=== PATIENT | male | born 1970 | race Caucasian/White ===

== ENCOUNTER 2021-12-19 22:44 | Inpatient (IN) | payer OTHER, SELFPAY ==
[2021-12-19 22:53] VITALS: BMI 35.6
--- NOTE | 2021-12-19 23:18 | PC.NURSE ---
MD Hernandez at bedside at this time.
--- NOTE | 2021-12-19 23:40 | ECG_ITS ---
APPROVED REPORT Exam: Resting ECG HR:80 bpm ECG Measurements Heart Rate 80 AXES NY 185 P 43 QRSd 105 QRS -85 QT 377 T 102 QTc 412 Conclusion SINUS RHYTHM PATTERN CONSISTENT WITH PULMONARY DISEASE LEFT ANTERIOR FASCICULAR BLOCK [QRS AXIS <= -45, QR IN I, RS IN II] ABNORMAL QRS-T ANGLE [QRS-T AXIS DIFFERENCE > 60] ABNORMAL ECG UNCONFIRMED REPORT Electronically signed by : Dillon Thornton MD 12/21/2021 19:33:40
[2021-12-19 23:53] LABS: Basophils # 0.2 K/mm3 (0-0.2); Basophils % 0.9 % (0.1-2.0); Eosinophils # 0.1 K/mm3 (0.0-0.4); Eosinophils % 0.3 % (0.1-12.0); Hematocrit 45.5 % (42.0-52.0); Hemoglobin 14.8 g/dL (14.1-18.0); Lymphocytes # 1.8 K/mm3 (0.7-4.5); Lymphocytes % 11.2 % (10-50); Mean Corpuscular HGB Conc 32.5 g/dL (31.8-35.4); Mean Corpuscular Hemoglobin 31.9 pg (27.0-31.2); Mean Corpuscular Volume 98.2 fl (80-94); Mean Platelet Volume 7.4 fl (7.4-10.4); Monocytes # 0.6 K/mm3 (0.1-1.0); Monocytes % 3.5 % (1.7-9.3); Neutrophils # 13.8 K/mm3 (1.8-7.8); Neutrophils % 84.1 % (37.0-80.0); Platelet Count 349 K/mm3 (142-424); Red Blood Count 4.64 M/mm3 (4.60-6.20); Red Cell Distribution Width 14.9 % (11.5-17.5); White Blood Count 16.4 K/mm3 (4.8-10.8)
[2021-12-20] VITALS (26 sets, daily range): BP systolic 106–170; BP diastolic 20–101; PULSE 84–102; RESP 15–20; TEMP 37.1–38.1; O2SAT 89–96; BMI 35.6
--- NOTE | 2021-12-20 | IR_ITS ---
APPROVED REPORT Patient Location: [facility] [employer] Cloth Spreader: CHANDNI Hampton RT (R) PROCEDURES Left heart catheterization Left ventriculogram Selective coronary angiogram Mechanical thrombectomy followed by drug-eluting stent deployment to a proximally thrombosed circumflex artery INDICATION Acute non-ST elevation myocardial infarction, Coronary artery disease Informed consent was obtained prior to the procedure. COMPLICATIONS None TECHNIQUE 1% lidocaine used anesthetize right groin the right femoral artery was accessed via the Salinger technique and a 4 Afghan sheath was initially placed in the right femoral artery. Following this the sheath was upsized immediately to a 6 Afghan hydrophilic sheath. JL4 guide catheter with sideholes was used to intubate the left main artery and perform angiography. At this point 9000 units of heparin was administered intravenously giving a therapeutic ACT. A Choice PT extra-support wire was placed through the occlusion and a 2 mm x 12 mm balloon was deployed at 20 david to predilate the stenosis. There was no jewish of flow after the balloon inflation. Following this a penumbra mechanical aspiration catheter was advanced and the thrombus was aspirated. Scant flow was then identified distally. A 3 mm balloon was then placed into the occlusion and deployed at 20 david with again only scant flow distally. A 3 mm x 18 mm resolute Titus stent was then deployed at 20 david reducing the occlusion and restoring WHIT-3 flow. 3.5 mm x 8 mm balloon was then deployed at 24 david up and down the stent the post dilate. After achieving excellent angiograph results the apparatus was removed and a JR4 catheter was used to perform right coronary angiography as well as left heart catheterization and left ventriculogram. At the end of the procedure the apparatus was removed the groin was reprepped closure change sheath was removed good hemostasis was achieved using Perclose device patient was transferred to the postop holding area stable condition ANGIOGRAPHIC RESULTS The left main artery Normal The left anterior descending artery Has proximal 20 to 30% stenoses with mid vessel 20 and 30% stenoses. The circumflex artery Is a nondominant vessel and initially proximally thrombosed. Following revascularization the circumflex artery was a nondominant large caliber vessel. The first obtuse marginal artery has an ostial proximal 80% concentric stenosis followed by an additional 80% stenosis. The second obtuse marginal artery has proximal concentric 80% stenosis along a tortuous bend. Both obtuse marginal arteries are moderate to large vessel supplying a large amount of myocardium The right coronary artery Is a codominant vessel and has a mid vessel concentric 60% stenosis followed by distal 40% stenoses. The posterior descending artery is a smaller 2 mm vessel and has an ostial 80 to 90% stenosis of the posterior lateral branch is also small approximately 2 mm in diameter and has an 80% concentric stenosis The LEE ventriculogram reveals Severely dilated and globally hypokinetic with an estimated ejection fraction of 15 to 20% The left ventricular end-diastolic pressure 20 mmHg IMPRESSION Coronary artery disease as described above Successful mechanical thrombectomy followed by drug-eluting stenting of a proximal codominant circumflex artery reducing the 100% occlusion to 0% Persistent disease in the first and second obtuse marginal artery as described above Persistent disease in the posterior descending artery and posterior lateral branch as described above Severe left ventricular dysfunction Elevated LVEDP 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
--- NOTE | 2021-12-20 | HMH.ACPN2 ---
Internal Medicine - PN: Subj *Date: 12/20/21 *Time: 00:45 Interval history: 51 yo [place] male accepted in transfer from [facility] this evening with NSTEMI. States he was at work this AM and began having substernal chest pain around 10AM. He presented to the ER around 3 PM. He was found to have elevated troponins with no EKG changes. [facility] was unable to find accepting hospital in [place] and requested transfer here for Cardiology services. On arrival, he is still having chest pain but denies SOA or nausea. He recieved ASA in the ER and has a heparin drip running. He was hypertensive at 158/91. Exam I & O for Last 24 hours: Intake & Output 12/17/21 12/18/21 12/19/21 12/20/21 11:59 11:59 11:59 11:59 Weight 214 lb 9 oz Narrative: He is somewhat stoic and initially rated his pain at 8/10, now 6/10. Neck is supple with no bruits. Lungs clear. Heart is regular with no murmurs. Abdomen soft, NT, no masses. Estremities with no edema Assessment and Plan (1) NSTEMI (non-ST elevated myocardial infarction) Status: Acute Category: Medical Code(s): I21.4 - Non-ST elevation (NSTEMI) myocardial infarction (2) HBP (high blood pressure) Status: Acute Category: Medical Code(s): I10 - Essential (primary) hypertension (3) Elevated LFTs Status: Acute Category: Medical Code(s): R79.89 - Other specified abnormal findings of blood chemistry - Assessment and plan all Dx Assessment and Plan for all problems:: He has recieved mophine and metoprolol 5 mg IV. BP imporved to 142/86. I discussed the case with Dr. Petit and recommends starting NTG drip and give additional morphine. If pain is not controlled, he will likely take patient to laboratory sampler tonight.
[2021-12-20 00:01] LABS: Alanine Aminotransferase 108 U/L (12-78); Albumin Level 4.2 g/dl (3.5-5.0); Albumin/Globulin Ratio 1.4 (1.1-1.8); Alkaline Phosphatase 92 U/L (38-126); Anion Gap 12.1 mEq/L (5-15); Aspartate Amino Transferase 727 U/L (17-59); Bilirubin,Total 0.5 mg/dl (0.2-1.3); Blood Urea Nitrogen 10 mg/dl (9-20); Carbon Dioxide 24 mmol/L (22.0-30.0); Chloride 104 mmol/L (98-107); Creatinine Clearance Estimated 168 mL/min (50-200); Estimated Glomerular Filt Rate 118 ml/min (>60); GFR (African American) 143 ML/MIN (>60); Globulin 2.9 g/dL (1.3-3.2); Glucose 155 mg/dl (74-100); Potassium 4.1 mmoL/L (3.5-5.1); Sodium 136 mmol/L (136-145); Total Protein,Serum 7.1 g/dl (6.3-8.2)
[2021-12-20 00:03] LABS: MANUAL DIFFERENTIAL MANUAL DIFFERENTIAL (MANUAL DIFF)
[2021-12-20 00:05] LABS: PTT Heparin (inpatient only) 31.6 Seconds (23.6-34.0)
[2021-12-20 01:07] LABS: CKMB Relative Index 8.9 U/L (0-4.0); Creatine Kinase 5703 U/L (55-170)
--- NOTE | 2021-12-20 01:34 | PC.NURSE ---
Nightwatch consulted over PTT. Change Heparin gtt to 1600 units. Also asked if Heparin and Nitro gtt are compatible. Pharmacy stated yes they are.
--- NOTE | 2021-12-20 01:38 | PC.NURSE ---
Nitro gtt started at 0129 at 10 mcg/min. Currently infusing @ 30 mcg/min. BP is currently 133/97. Pt rates pain a 5 now from a previous 10.
--- NOTE | 2021-12-20 01:59 | PC.NURSE ---
Nitro titrated to 50 mcg/min. Pt pain at 5. BP 134/96. HR 95. O2 sat 95% on 2L O2 NC.
[2021-12-20 02:09] LABS: Lymphocytes % 16 % (10-50); Macrocytosis 1+; Monocytes % 1 % (2-9); Neutrophils % 83 % (42-76); Platelet Estimate Normal; Stomatocytes 1+; Total Cells Counted 100
[2021-12-20 02:33] LABS: Coronavirus 19, PCR Not Detected (NotDetected); Influenza A, PCR Not Detected (NotDetected); Influenza B, PCR Not Detected (NotDetected)
--- NOTE | 2021-12-20 02:53 | PC.NURSE ---
Damaso called and was updated on pt status. Continues to have pain rating it a 5. Pt describes a weight on his chest that radiates up to throat and down to sternum and below to epigastric area on (L) and (R). MD Petit stated to call in microbiology lab analyst for Stemi alert. 252 dairy and food laboratory assistant notified. 0255 Morphine 2mg IV administered. Attempted to notifiy family. Left message for them to call hospital. Pt prepped and left floor to microbiology lab analyst at [phone].
[2021-12-20 05:01] LABS: CATHL Activated Clotting Time 293 SEC (74-125)
--- NOTE | 2021-12-20 05:09 | PC.NURSE ---
patient up from laboratory technician via stretcher @ this time .
--- NOTE | 2021-12-20 05:43 | PC.NURSE ---
Pt arrived from cardiac cath lab technologist. Currently states he has no pain. Femoral cath site c/d/i. (R) radial cath site is also c/d/i. No hemaotma noted to either site. Nitro gtt infusing at this time @ 10 mcg/min to maintain BP. Heparin gtt was stopped in cardiac cath lab technologist. Pt has had a 15 beat run of VTach. Will place on chart.
[2021-12-20 06:41] LABS: Chloride 101 mmol/L (98-107); Potassium 4.8 mmoL/L (3.5-5.1); Sodium 131 mmol/L (136-145)
[2021-12-20 06:43] LABS: Blood Urea Nitrogen 9 mg/dl (9-20); Creatinine Clearance Estimated 147 mL/min (50-200); Estimated Glomerular Filt Rate 101 ml/min (>60); GFR (African American) 122 ML/MIN (>60)
[2021-12-20 06:44] LABS: Alanine Aminotransferase 122 U/L (12-78); Albumin Level 3.9 g/dl (3.5-5.0); Albumin/Globulin Ratio 1.3 (1.1-1.8); Alkaline Phosphatase 94 U/L (38-126); Anion Gap 5.8 mEq/L (5-15); Bilirubin,Total 0.6 mg/dl (0.2-1.3); Carbon Dioxide 29 mmol/L (22.0-30.0); Cholesterol 225 mg/dl (140-200); Globulin 2.9 g/dL (1.3-3.2); Glucose 142 mg/dl (74-100); Total Protein,Serum 6.8 g/dl (6.3-8.2); Triglycerides 100 mg/dl (30-150); VLDL Cholesterol 20 mg/dL (0-40)
[2021-12-20 06:45] LABS: Calcium 8.6 mg/dl (8.4-10.2); HDL Cholesterol 45 mg/dl (40-60)
[2021-12-20 06:55] LABS: Direct LDL Cholesterol 150.17 mg/dL (100-129)
[2021-12-20 07:00] LABS: Basophils # 0.1 K/mm3 (0-0.2); Basophils % 0.5 % (0.1-2.0); Eosinophils % 0.1 % (0.1-12.0); Hematocrit 45.4 % (42.0-52.0); Hemoglobin 14.3 g/dL (14.1-18.0); Lymphocytes # 2.3 K/mm3 (0.7-4.5); Lymphocytes % 14.4 % (10-50); Mean Corpuscular HGB Conc 31.4 g/dL (31.8-35.4); Mean Corpuscular Hemoglobin 31.7 pg (27.0-31.2); Mean Corpuscular Volume 100.8 fl (80-94); Mean Platelet Volume 8.7 fl (7.4-10.4); Monocytes % 6.1 % (1.7-9.3); Neutrophils # 12.7 K/mm3 (1.8-7.8); Platelet Count 367 K/mm3 (142-424); Red Blood Count 4.51 M/mm3 (4.60-6.20); Red Cell Distribution Width 14.9 % (11.5-17.5); White Blood Count 16.1 K/mm3 (4.8-10.8)
--- NOTE | 2021-12-20 07:33 | HMH.CNCARD ---
History of Present Illness Consult date: 12/20/21 Requesting physician: Ethan Hernandez Consult reason: chest pain Chief complaint: NSTEMI History of present illness: 51-year-old male presented to the emergency room with midsternal chest pain. Patient was noted as non-STEMI. Patient did undergo left heart catheterization immediately which revealed successful mechanical thrombectomy followed by drug-eluting stenting of the proximal circumflex artery, persistent disease in the first and second obtuse marginal artery. Persistent disease of the posterior descending artery and posterolateral branch. Patient was started on Brilinta 90 mg p.o. twice daily along with 81 mg aspirin. Severe left ventricular dysfunction with elevated LVEDP. 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 Patient does speak very little Faroese. Patient states he has been having chest pain all day yesterday prior to coming to the emergency room. Patient states he was short of breath with his chest pain. Patient denies palpitations or dizziness. No swelling noted of the lower extremities. Patient denies chest pain, tightness or pressure at this time. Patient denies shortness of breath. Patient noted to be hypertensive with a blood pressure of 125/94. Patient does continue to be on a nitroglycerin drip, in which the nursing staff is trying to wean patient down. Patient denies any history of coronary disease. Patient unable to tell me if there is significant family history of coronary disease in the family. Patient does smoke at least 2 to 3 cigarettes a day. Patient states he does drink occasional alcohol. Patient states he does have weekly drug testing. Patient states he has not had any recreational drugs for 3 years. Patient was started on Entresto and carvedilol due to the severe left ventricular dysfunction. Patient will need to be started on low-dose diuretic such as a loop diuretic and Aldactone due to elevated LVEDP. Will defer starting loop diuretic and Aldactone until patient becomes hemodynamically stable. Due to the severe left ventricular dysfunction, echocardiogram will be obtained. Echocardiogram results pending. If echocardiogram reveals EF less than 35%, patient will then be fitted for LifeVest due to increased risk for sudden . Discussion of LifeVest and benefits was discussed with patient. Patient verbalized understanding and is agreeable if he would have to have a LifeVest. stripper cutter machine reveals sinus rhythm with a heart rate of 78bpm. Liver enzymes were noted as elevated. We will stop atorvastatin at this time. Total bilirubin is within normal. ANGIOGRAPHIC RESULTS The left main artery Normal The left anterior descending artery Has proximal 20 to 30% stenoses with mid vessel 20 and 30% stenoses. The circumflex artery Is a nondominant vessel and initially proximally thrombosed. Following revascularization the circumflex artery was a nondominant large caliber vessel. The first obtuse marginal artery has an ostial proximal 80% concentric stenosis followed by an additional 80% stenosis. The second obtuse marginal artery has proximal concentric 80% stenosis along a tortuous bend. Both obtuse marginal arteries are moderate to large vessel supplying a large amount of myocardium The right coronary artery Is a codominant vessel and has a mid vessel concentric 60% stenosis followed by distal 40% stenoses. The posterior descending artery is a smaller 2 mm vessel and has an ostial 80 to 90% stenosis of the posterior lateral branch is also small approximately 2 mm in diameter and has an 80% concentric stenosis The LEE ventriculogram reveals Severely dilated and globally hypokinetic with an estimated ejection fraction of 15 to 20% The left ventricular end-diastolic pressure 20 mmHg IMPRESSION Coronary artery disease as described above Successful mechanical throm
--- NOTE | 2021-12-20 07:37 | CA_ITS ---
APPROVED REPORT EXAM: Comprehensive 2D, Doppler, and color-flow Echocardiogram Immigration Paralegal: ROMARIO Aguirre, RVS Ht: 5 ft 5 in Wt: 214lbs BSA: 2.04 BP: 000/00 mmHg Indications: Patient post cath scanned with pt flat/supine, NSTEMI, HTN, Smoker. Evaluate for lifevest 2D Dimensions Left Atrium 4.39 cm LA Volume 44.10 mL LVOT 2.24 cm (M/F) 1.5-2.5 LA Volume Index 21.60 mL/m2 (M/F) 16-34 M-Mode Dimensions RVDd 1.45 cm (0.9-2.6) LA Diam 4.18 cm (1.9-4.0) LVDd 4.90 cm (3.5-5.7) Ao Diam 3.37 cm (2.0-3.7) LVDs 4.19 cm (3.5-5.7) IVSd 1.33 cm (0.6-1.1) PWd 1.17 cm (0.6-1.1) EF (Teich) 35.50% EPSs 0.57 cm FS 14.10% EDV (Teich) 135.90 mL TAPSE 2.20 (<1.7) ESV (Teich) 78.10 mL LV Diastology E Decel Time 67.00 (160-240 msec) E/A Ratio 1.11 MED E' 7.20 (< 7 cm/sec) MED A' 7.70 cm/s E'/MED E' Ratio 11.93 (>14) LAT E' 5.80 (<10 cm/sec) LAT A' 9.80 cm/s E/LAT E' Ratio 14.81 (>14) Aortic Valve LVOT Max 90.00 (70-110 cm/s) LVOT VTI 16.47 cm AoV Peak Alphonse. 136.00 (50-130 cm/s) AO Peak GR. 7.40 mmHg AO Mean GR. 3.70 (<5 mmHg) AO VTI 22.88 (18-25 cm) QUINCY (VTI) 2.84 (2.5-4.5 cm2) Mitral Valve MV A Velocity 78.00 (40-130 cm/s) E/A Ratio 1.11 MV Decel. Time 67.00 (160-240 ms) MV Mean Gr. 1.50 (<2mmHg) Pulmonary Valve PV Peak Velocity 82.00 (50-150 cm/s) Tricuspid Valve TR P. Velocity 217.00 cm/s RAP Estimate 10.00 mmHg RVSP 28.80 mmHg Left Ventricle Left atrium is mildly enlarged, left ventricle is normal size, mild concentric left ventricular hypertrophy, reduced left ventricular systolic function, visually estimated ejection fraction approximately 30%, there is marked hypokinesis involving the inferior inferior basal posterolateral and lateral wall. Grade 1 diastolic dysfunction seen with tissue Doppler evidence of raise left atrial pressure. Right Ventricle Right atrium and right ventricle are normal size and contractility. Aortic Valve Aortic valve is thickened and calcified without aortic stenosis or aortic insufficiency. Mitral Valve Mitral valve is grossly normal, there is trace mitral regurgitation. Tricuspid Valve Tricuspid grossly normal, there is trace tricuspid regurgitation, tricuspid regurgitation jet velocity is inadequate for calculation of the right ventricular systolic pressure. Pulmonic Valve Pulmonic valve is poorly visualized. Great Vessels Aortic root is normal size. Pericardium No significant pericardial effusion noted. Inferior vena cava is mildly dilated without significant inspiratory collapse. Conclusion 1. Mildly dilated, normal left ventricular size, mild concentric left ventricular hypertrophy, visually estimated ejection fraction 30% with multiple segmental wall motion abnormality described above, grade 1 diastolic dysfunction seen with tissue Doppler evidence of raise left atrial pressure. 2. Mild mitral and tricuspid regurgitation. 3. No significant pericardial effusion. 4. Inferior vena cava is mildly dilated without significant inspiratory collapse. Electronically signed by : Ji Hoffman MD 12/20/2021 19:40:46
[2021-12-20 08:00] LABS: PTT Heparin (inpatient only) 118.1 Seconds (23.6-34.0)
--- NOTE | 2021-12-20 08:20 | P.CONPHA_ITS ---
[facility] Pharmacy VTE Monitoring - Patient Demographics Admission date: 12/20/21 Report Date: 12/20/21 Time: 08:21 Allergies/Adverse Reactions: Patient Allergies No Known Allergies Allergy (Verified 12/19/21 23:04) Height: 1.65 m Weight: 97.324 kg Patient Problems: Current Active Problems NSTEMI (non-ST elevated myocardial infarction) (Acute) HBP (high blood pressure) (Acute) Elevated LFTs (Acute) - VTE Risk Labs: VTE Related Lab Results Hgb 14.3 g/dL (14.1-18.0) 12/20/21 05:33 Hct 45.4 % (42.0-52.0) 12/20/21 05:33 Plt Count 367 K/mm3 (142-424) 12/20/21 05:33 APTT 118.1 Seconds (23.6-34.0) H* 12/20/21 05:33 BUN 10 mg/dl (9-20) 12/19/21 23:45 Creatinine 0.70 mg/dl (0.66-1.25) 12/19/21 23:45 Estimated Creat Clear 168 mL/min (50-200) 12/19/21 23:45 Was VTE Risk Assessment Performed: Yes VTE Score: 2 VTE Risk Level: Low Risk Clinical Trial Participant: No - Prophylaxis VTE Prophylaxis Ordered?: Yes Types of VTE Prophylaxis: TEDS Knee High
--- NOTE | 2021-12-20 08:27 | HMH.HP ---
*Admission Date: 12/20/21 <Josefina Daley - 12/20/21 08:41> *Chief complaint: Chest pain <Josefina Daley - 12/20/21 08:41> *History of present illness: Mr. Lakshmi Purvis is a 51-year-old Iranian male with no previous history. He was on no medications. He was accepted in transfer [facility] the previous evening with an NSTEMI. Patient states he was at work in the a.m. and began having substernal chest pain around 10 AM. He presented to the emergency room around 3 PM. He was found to have elevated troponins with no EKG changes. [facility] was unable to find a hospital to accept him in [place] and requested transfer to [facility] for cardiology services. On arrival to the hospital patient continued to have chest pain. He denied shortness of breath or nausea. He did receive aspirin in the ER and had a heparin drip running. He was hypertensive at 158/91. On admission laboratory data reveals normal electrolytes and kidney function. AST was elevated at 727. All cardiac enzymes were elevated with a troponin I of 59.9. Patient continued to have chest pain and thus had a cardiac cath per Dr. 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 Brilinta 90 twice daily plus aspirin 81 mg daily 2. LDL less than 55 to be achieved with high intensity statin 3. Start Entresto and carvedilol as soon as possible in order to control hypertension and treatment of systolic congestive heart failure 4. Low-dose diuretics which should include loop diuretic and Aldactone 5. Formal echocardiogram on to determine if ejection fraction is reduced and patient is a candidate for LifeVest 6. Avoidance of tobacco products 7. Cardiac rehabilitation 8. Supportive care with telemetry for at least the next 48 hours Patient does indicate that he has not felt his usual selffor the last 2 weeks. He describes weakness in his legs and not feeling as well. He also states he had a cold several weeks ago. He has experienced some dizziness and headache for the past 2 months. Patient this a.m. indicates that he has some chest discomfort although it is different than what he experienced prior to the heart cath. He does remain on a nitroglycerin drip for blood pressure control. He will start p.o. medicines as per cardiology this a.m. <Josefina Daley 12/20/21 09:01> [facility] History Medical History: Denies:: Diabetes Mellitus Type 1, Diabetes Mellitus Type 2, Gastroesophageal Reflux Disease(GERD) <Josefina Daley 12/20/21 08:41> *Have you ever received a pneumonia vaccine?: No <Josefina Daley 12/20/21 08:41> *Have you received a flu vaccine this season?: No <Josefina Daley 12/20/21 08:41> Other Surgeries: Yes: No Previous Surgery <Josefina Daley 12/20/21 08:41> - *Social History Smoking Status: Current every day smoker <Josefina Daley 12/20/21 08:41> # Packs/Day (cigarettes): 1 <Josefina Daley 12/20/21 08:41> Alcohol Intake: current <Josefina Daley 12/20/21 08:41> Alcohol Intake Frequency:: a few times a week <Josefina Daley 12/20/21 08:41> *Occupational Status:: employed <Josefina Daley 12/20/21 08:41> Housing: house <Josefina Daley 12/20/21 08:41> Household Members: family <Josefina Daley 12/20/21 08:41> *Travel in the last 8 weeks: None <Josefina Daley 12/20/21 08:41> Family Hx:: Asthma <Josefina Daley 12/20/21 08:41> Review of Systems - Constitutional D
[2021-12-20 08:49] LABS: Aspartate Amino Transferase 926 U/L (17-59)
--- NOTE | 2021-12-20 09:08 | SW/DCPLANNER ---
Susan Wright has been working with this patient regarding self pay status.
[2021-12-20 11:23] LABS: Gamma Glutamyl Transpeptidase 51 U/L (15-73)
[2021-12-21] VITALS (11 sets, daily range): BP systolic 110–127; BP diastolic 61–88; PULSE 82–103; RESP 16–24; TEMP 37–37.8; O2SAT 93–96
--- NOTE | 2021-12-21 04:56 | PC.NURSE ---
PATIENT HAS RESTED WELL THIS SHIFT. PATIENT REMAINS IN NSR ON TELEMETRY. PATIENT NPO FOR U/S OF LIVER THIS AM. VSS. RIGHT RADIAL AND RIGHT FEMORAL DSG'S REMAIN C/D/I. NO ACUTE DISTRESS NOTED. WILL CONTINUE TO MONITOR.
--- NOTE | 2021-12-21 08:00 | US_ITS ---
FINAL REPORT CLINICAL HISTORY: elevated LFTS; AST>ALT FINDINGS: Sonographic images of the right upper quadrant were obtained. The pancreas is partially obscured.The liver is increased echogenicity. There is sludge in the gallbladder. There is an echogenic non shadowing focus along the anterior gallbladder wall. There is no evidence of biliary ductal dilatation.The common duct measures 3 mm. Limited images of the right kidney are unremarkable. IMPRESSION: Fatty liver. Echogenic non-shadowing focus along the anterior gallbladder wall that may represent a small polyp or cholesterolosis. Sludge in the gallbladder. Reviewed, Interpreted and Dictated by Edgar Jeter III, MD Transcribed by Lopez Amaral Authenticated by Edgar Jeter III, MD on 12/21/2021 11:00:22 AM [facility]
[2021-12-21 08:15] LABS: Hep A Ab, IgM Negative (Negative); Hepatitis B Core Antibody IgM Negative (Negative); Hepatitis B Surface Antigen Negative (Negative); Hepatitis C Antibody <0.1 s/co ratio (0.0-0.9)
--- NOTE | 2021-12-21 08:17 | HMH.PNCARD ---
Subjective Date: 12/21/21 Time: 08:00 Principal diagnosis: NSTEMI Interval history: 51-year-old male presented to the emergency room with midsternal chest pain on 12/19/21. Patient was noted as non-STEMI. Patient did undergo left heart catheterization immediately which revealed successful mechanical thrombectomy followed by drug-eluting stenting of the proximal circumflex artery, persistent disease in the first and second obtuse marginal artery. Persistent disease of the posterior descending artery and posterolateral branch. Patient was started on Brilinta 90 mg p.o. twice daily along with 81 mg aspirin. Severe left ventricular dysfunction with elevated LVEDP. 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 Patient was started on Entresto and carvedilol due to the severe left ventricular dysfunction. Patient will need to be started on low-dose diuretic such as a loop diuretic and Aldactone due to elevated LVEDP. Will defer starting loop diuretic and Aldactone until patient becomes hemodynamically stable. Echocardiogram reveals EF 30% with multiple segmental wasll motion abnormality. Grade 1 diastolic dysfunction. Mild MR and TR noted. Life Vest will be ordered for pt due to severe left ventricular dysfunction. Discussion of LifeVest and benefits was discussed with patient yesterday. Patient verbalized understanding and is agreeable if he would have to have a LifeVest. Pt had a restful evening per nursing staff. VS stable. NTG drip had been d'cd yesterday afternoon. BP has been stable. engine monitor reveals sinus rhythm. Liver enzymes were noted as elevated. Atorvastatin was stopped. Total bilirubin is within normal. PCP has ordered additional testing due to abnormal liver enzymes. Echo:Conclusion 1. Mildly dilated, normal left ventricular size, mild concentric left ventricular hypertrophy, visually estimated ejection fraction 30% with multiple segmental wall motion abnormality described above, grade 1 diastolic dysfunction seen with tissue Doppler evidence of raise left atrial pressure. 2. Mild mitral and tricuspid regurgitation. 3. No significant pericardial effusion. 4. Inferior vena cava is mildly dilated without significant inspiratory collapse. 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 Brilinta 90 twice daily plus aspirin 81 mg daily 2. LDL less than 55 to be achieved with high intensity statin 3. Start Entresto and carvedilol as soon as possible in order to control hypertension and treatment of systolic congestive heart failure 4. Low-dose diuretics which should include loop diuretic and Aldactone 5. Formal echocardiogram on to determine if ejection fraction is reduced and patient is a candidate for LifeVest 6. Avoidance of tobacco products 7. Cardiac rehabilitation 8. Supportive care with telemetry for at least the next 48 hours Exam Vital signs and Labs for Last 24 Hours: Temp Pulse Resp BP Pulse Ox 99.2 F 84 18 121/86 96 12/21/21 04:00 12/21/21 06:00 12/21/21 06:00 12/21/21 06:00 12/21/21 06:00 Laboratory Results - last 24 hr 12/20/21 05:33: Sodium 131 L, Potassium 4.8, Chloride 101, Carbon Dioxide 29, Anion Gap 5.8, BUN 9, Creatinine 0.80, Estimated Creat Clear 147, Estimated GFR 101, Est GFR ( Amer) 122, Glucose 142 H, Calcium 8.6, Total Bilirubin 0.6, AST 926 H* D, ALT 122 H, Alkaline Phosphatase 94,
--- NOTE | 2021-12-21 09:08 | HMH.ACPN2 ---
<Nicky Moreno - Last Filed: 12/21/21 09:08> Internal Medicine - PN: Subj *Date: 12/21/21 *Time: 09:08 Interval history: Patient states he is feeling better this morning. He denies any chest pain or abdominal pain. He slept well and was able to eat. Exam Vital signs and Labs for Last 24 Hours: Temp Pulse Resp BP Pulse Ox 99.2 F 84 18 121/86 96 12/21/21 04:00 12/21/21 06:00 12/21/21 06:00 12/21/21 06:00 12/21/21 06:00 Laboratory Results - last 24 hr 12/20/21 05:33: GGT 51 12/20/21 05:33: Hepatitis A IgM Ab Negative, Hep Bs Antigen Negative, Hep B Core IgM Ab Negative, Hepatitis C Antibody <0.1 I & O for Last 24 hours: Intake & Output 12/18/21 12/19/21 12/20/21 12/21/21 11:59 11:59 11:59 11:59 Intake Total 120 / 120 Output Total 600 / 600 Balance -480 / -480 Weight 213 lb 13.574 oz - Constitutional no acute distress - *Routine Respiratory Exam Present: CTA bilaterally - *Routine Cardiovascular Exam Present: tachycardia - *Routine Abdominal Exam Present: soft, normoactive bowel sounds. Absent: tenderness - *Routine Extremities Exam Absent: cyanosis, clubbing, edema - *Routine Skin Exam Present: warm. Absent: rash - *Routine Neurological Exam Present: alert, oriented X3 Assessment and Plan (1) NSTEMI (non-ST elevated myocardial infarction) Status: Acute Category: Medical Code(s): I21.4 - Non-ST elevation (NSTEMI) myocardial infarction (2) HBP (high blood pressure) Status: Acute Category: Medical Code(s): I10 - Essential (primary) hypertension (3) Elevated LFTs Status: Acute Category: Medical Code(s): R79.89 - Other specified abnormal findings of blood chemistry (4) Left ventricular dysfunction Status: Acute Category: Medical Code(s): I51.9 - Heart disease, unspecified - Assessment and plan all Dx Assessment and Plan for all problems:: Patient is to be kept for 48 hours for monitoring as per cardiology. They want to place a LifeVest before discharge due to his low EF. Liver function studies are still elevated. We will get a right upper quadrant ultrasound. <DavidEthan Noriega - Last Filed: 12/22/21 08:18> Internal Medicine - PN: Subj *Date: 12/22/21 *Time: 08:17 Exam Vital signs and Labs for Last 24 Hours: Temp Pulse Resp BP Pulse Ox 98.3 F 90 16 105/59 L 98 12/22/21 04:00 12/22/21 04:00 12/22/21 04:00 12/22/21 04:00 12/22/21 08:00 I & O for Last 24 hours: Intake & Output 12/19/21 12/20/21 12/21/21 12/22/21 11:59 11:59 11:59 11:59 Intake Total 120 / 120 600 / 600 Output Total 600 / 600 3 / 3 Balance -480 / -480 597 / 597 Weight 213 lb 13.574 oz 212 lb 6.293 oz Assessment and Plan (1) NSTEMI (non-ST elevated myocardial infarction) Status: Acute Category: Medical Code(s): I21.4 - Non-ST elevation (NSTEMI) myocardial infarction (2) HBP (high blood pressure) Status: Acute Category: Medical Code(s): I10 - Essential (primary) hypertension (3) Elevated LFTs Status: Acute Category: Medical Code(s): R79.89 - Other specified abnormal findings of blood chemistry (4) Left ventricular dysfunction Status: Acute Category: Medical Code(s): I51.9 - Heart disease, unspecified - Assessment and plan all Dx Assessment and Plan for all problems:: Patient seen and examined this morning. Concur with above. Awaiting further cardiology recommendations
[2021-12-22] VITALS (11 sets, daily range): BP systolic 102–143; BP diastolic 59–82; PULSE 80–94; RESP 16–22; TEMP 36.6–37.5; O2SAT 95–98; BMI 35.4
--- NOTE | 2021-12-22 04:10 | PC.NURSE ---
PATIENT HAS RESTED WELL THIS SHIFT. VSS. PT REMAINS NSR ON TELEMETRY. PT DENIES ANY C/P. NO ACUTE DISTRESS NOTED.
--- NOTE | 2021-12-22 09:46 | HMH.ACPN2 ---
<Nicky Moreno - Last Filed: 12/22/21 09:46> Internal Medicine - PN: Subj *Date: 12/22/21 *Time: 09:46 Interval history: Patient states he is feeling well today. He has had some mild chest pain and abdominal pain. His liver ultrasound showed fatty liver and some sludge in the gallbladder but was otherwise unremarkable. Exam Vital signs and Labs for Last 24 Hours: Temp Pulse Resp BP Pulse Ox 99.3 F 87 17 143/71 H 95 12/22/21 08:00 12/22/21 08:00 12/22/21 08:00 12/22/21 08:00 12/22/21 08:00 I & O for Last 24 hours: Intake & Output 12/19/21 12/20/21 12/21/21 12/22/21 11:59 11:59 11:59 11:59 Intake Total 120 / 120 600 / 600 Output Total 600 / 600 3 / 3 Balance -480 / -480 597 / 597 Weight 213 lb 13.574 oz 212 lb 6.293 oz - Constitutional no acute distress - *Routine Respiratory Exam Present: CTA bilaterally - *Routine Cardiovascular Exam Present: RRR - *Routine Abdominal Exam Present: soft, normoactive bowel sounds. Absent: tenderness - *Routine Extremities Exam Absent: cyanosis, clubbing, edema - *Routine Skin Exam Present: warm. Absent: rash - *Routine Neurological Exam Present: alert, oriented X3 Assessment and Plan (1) NSTEMI (non-ST elevated myocardial infarction) Status: Acute Category: Medical Code(s): I21.4 - Non-ST elevation (NSTEMI) myocardial infarction (2) HBP (high blood pressure) Status: Acute Category: Medical Code(s): I10 - Essential (primary) hypertension (3) Elevated LFTs Status: Acute Category: Medical Code(s): R79.89 - Other specified abnormal findings of blood chemistry (4) Left ventricular dysfunction Status: Acute Category: Medical Code(s): I51.9 - Heart disease, unspecified - Assessment and plan all Dx Assessment and Plan for all problems:: We will discuss further care with Dr. Hernandez. Possible discharge today. <Ethan Hernandez - Last Filed: 12/22/21 10:45> Internal Medicine - PN: Subj *Date: 12/22/21 *Time: 10:36 Exam Vital signs and Labs for Last 24 Hours: Temp Pulse Resp BP Pulse Ox 99.3 F 87 17 143/71 H 95 12/22/21 08:00 12/22/21 08:00 12/22/21 08:00 12/22/21 08:00 12/22/21 08:00 I & O for Last 24 hours: Intake & Output 12/19/21 12/20/21 12/21/21 12/22/21 11:59 11:59 11:59 11:59 Intake Total 120 / 120 600 / 600 Output Total 600 / 600 3 Balance -480 / -480 597 / 597 Weight 213 lb 13.574 oz 212 lb 6.293 oz Assessment and Plan (1) NSTEMI (non-ST elevated myocardial infarction) Status: Acute Category: Medical Code(s): I21.4 - Non-ST elevation (NSTEMI) myocardial infarction (2) HBP (high blood pressure) Status: Acute Category: Medical Code(s): I10 - Essential (primary) hypertension (3) Elevated LFTs Status: Acute Category: Medical Code(s): R79.89 - Other specified abnormal findings of blood chemistry (4) Left ventricular dysfunction Status: Acute Category: Medical Code(s): I51.9 - Heart disease, unspecified - Assessment and plan all Dx Assessment and Plan for all problems:: Patient seen and examined. Per cardiology, he is stable for discharge when LifeVest approved. He has been approved for Medicaid so will be able to afford his medications. Plan to discharge later today if Lifevest approved.
--- NOTE | 2021-12-22 10:50 | PC.NURSE ---
Spoke with Sister in law checking on pt. I got permission from pt to speak with her.
--- NOTE | 2021-12-22 12:38 | SW/DCPLANNER ---
Tqmmy w/ [employer] has called needing insurance verification: I provided her with phone number for patients insurance company.
--- NOTE | 2021-12-22 18:56 | PC.NURSE ---
Pt has done well this shift. No update on life vest. No c/o chest pain or SOA. Pt remains in NSR and on RA. Cath sites remain CDI. No other acute changes.
[2021-12-23] VITALS: PULSE 90
[2021-12-23 03:58] VITALS: BP 109/75; PULSE 94; RESP 22; TEMP 37.1; O2SAT 95
[2021-12-23 04:00] VITALS: PULSE 70
[2021-12-23 05:00] VITALS: BMI 35.6
--- NOTE | 2021-12-23 05:12 | PC.NURSE ---
PATIENT HAS SLEPT AT INTERVALS THIS SHIFT. REPORTS HE HAD SOME CHEST DISCOMFORT AROUND 0145 THAT SUBSIDED QUICKLY. VSS. PATIENT HAS REMAINED IN NSR ON TELEMETRY. NO ACUTE DISTRESS NOTED AT THIS TIME.
[2021-12-23 08:00] VITALS: BP 120/48; PULSE 87; PULSE 90; RESP 20; TEMP 36.5; O2SAT 96
--- NOTE | 2021-12-23 08:58 | HMH.ACPN2 ---
<Nicky Moreno - Last Filed: 12/23/21 08:58> Internal Medicine - PN: Subj *Date: 12/23/21 *Time: 08:58 Interval history: Patient states he feels about the same today. He had a few episodes of chest pain throughout the night but they resolved. He denies any pain this morning and states he slept off and on and did eat a good breakfast. He is anxious to go home. Exam Vital signs and Labs for Last 24 Hours: Temp Pulse Resp BP Pulse Ox 97.7 F 87 20 120/48 L 96 12/23/21 08:00 12/23/21 08:00 12/23/21 08:00 12/23/21 08:00 12/23/21 08:00 I & O for Last 24 hours: Intake & Output 12/20/21 12/21/21 12/22/21 12/23/21 11:59 11:59 11:59 11:59 Intake Total 120 / 120 960 / 960 960 / 960 Output Total 600 / 600 3 / 3 Balance -480 / -480 957 / 957 960 / 960 Weight 213 lb 13.574 oz 212 lb 6.293 oz 213 lb 9.6 oz - Constitutional no acute distress - *Routine Respiratory Exam Present: CTA bilaterally - *Routine Cardiovascular Exam Present: RRR - *Routine Abdominal Exam Present: soft, normoactive bowel sounds. Absent: tenderness - *Routine Extremities Exam Absent: cyanosis, clubbing, edema - *Routine Skin Exam Present: warm. Absent: rash - *Routine Neurological Exam Present: alert, oriented X3 Assessment and Plan (1) NSTEMI (non-ST elevated myocardial infarction) Status: Acute Category: Medical Code(s): I21.4 - Non-ST elevation (NSTEMI) myocardial infarction (2) HBP (high blood pressure) Status: Acute Category: Medical Code(s): I10 - Essential (primary) hypertension (3) Elevated LFTs Status: Acute Category: Medical Code(s): R79.89 - Other specified abnormal findings of blood chemistry (4) Left ventricular dysfunction Status: Acute Category: Medical Code(s): I51.9 - Heart disease, unspecified - Assessment and plan all Dx Assessment and Plan for all problems:: Patient is still awaiting LifeVest placement and can then be discharged. <Ethan Hernandez - Last Filed: 12/23/21 22:49> Internal Medicine - PN: Subj *Date: 12/23/21 *Time: 22:46 Exam Vital signs and Labs for Last 24 Hours: Temp Pulse Resp BP Pulse Ox 97.8 F 110 H 20 131/73 98 12/23/21 12:00 12/23/21 12:00 12/23/21 12:00 12/23/21 12:00 12/23/21 12:00 I & O for Last 24 hours: Intake & Output 12/21/21 12/22/21 12/23/21 12/24/21 11:59 11:59 11:59 11:59 Intake Total 120 / 120 960 / 960 960 / 960 Output Total 600 / 600 3 / 3 Balance -480 / -480 957 / 957 960 / 960 Weight 212 lb 6.293 oz 213 lb 9.6 oz Assessment and Plan (1) NSTEMI (non-ST elevated myocardial infarction) Status: Acute Category: Medical Code(s): I21.4 - Non-ST elevation (NSTEMI) myocardial infarction (2) HBP (high blood pressure) Status: Acute Category: Medical Code(s): I10 - Essential (primary) hypertension (3) Elevated LFTs Status: Acute Category: Medical Code(s): R79.89 - Other specified abnormal findings of blood chemistry (4) Left ventricular dysfunction Status: Acute Category: Medical Code(s): I51.9 - Heart disease, unspecified - Assessment and plan all Dx Assessment and Plan for all problems:: Patient seen and examined this AM. The chest pain he had during the night is atypical and described as a fleeting pinching sensation on left lateral chest. VSS. His LifeVest has been approved and he will be fitted this morning can discharge home with cardiology f/u this week. He is advised to stay off work until he follows up with cardiology. He will f/u with [facility] in 2 weeks and will need repeat LFTs .
--- NOTE | 2021-12-23 09:27 | HMH.PHACLD ---
Julio Leiva has received discharge medication counseling on the following medications: ASPIRIN 81MG BRILINTA 90MG CARVEDILOL 6.25MG ENTRESTO 24/26MG ALL NEW PRESCRIPTIONS WERE SENT TO CLINIC PHARMACY. PATIENT VERBALIZED UNDERSTANDING AND HAD NO QUESTIONS AT THIS TIME. -WALDEMAR ANAND, PHARMD
--- NOTE | 2021-12-23 09:50 | HMH.DCSUM ---
General - General Admission date:: 12/19/21 <DavidEthan hightower - 02/07/22 21:54> 12/19/21 <Nicky Moreno - 12/23/21 09:57> Discharge date: 12/23/21 <TiffanieNicky - 12/23/21 09:57> HPI HPI: Mr. Lakshmi Purvis is a 51-year-old [place] male with no previous history. He was on no medications. He was accepted in transfer from [facility] the previous evening with an NSTEMI. Patient states he was at work in the a.m. and began having substernal chest pain around 10 AM. He presented to the emergency room around 3 PM. He was found to have elevated troponins with no EKG changes. [facility] was unable to find a hospital to accept him in [place] and requested transfer to [facility] for cardiology services. On arrival to the hospital patient continued to have chest pain. He denied shortness of breath or nausea. He did receive aspirin in the ER and had a heparin drip running. He was hypertensive at 158/91. On admission laboratory data reveals normal electrolytes and kidney function. AST was elevated at 727. All cardiac enzymes were elevated with a troponin I of 59.9. Patient continued to have chest pain and thus had a cardiac cath per Dr. 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 Brilinta 90 twice daily plus aspirin 81 mg daily 2. LDL less than 55 to be achieved with high intensity statin 3. Start Entresto and carvedilol as soon as possible in order to control hypertension and treatment of systolic congestive heart failure 4. Low-dose diuretics which should include loop diuretic and Aldactone 5. Formal echocardiogram on to determine if ejection fraction is reduced and patient is a candidate for LifeVest 6. Avoidance of tobacco products 7. Cardiac rehabilitation 8. Supportive care with telemetry for at least the next 48 hours Patient does indicate that he has not felt his usual self for the last 2 weeks. He describes weakness in his legs and not feeling as well. He also states he had a cold several weeks ago. He has experienced some dizziness and headache for the past 2 months. Patient this a.m. indicates that he has some chest discomfort although it is different than what he experienced prior to the heart cath. He does remain on a nitroglycerin drip for blood pressure control. He will start p.o. medicines as per cardiology this a.m. <Nicky Moreno - 12/23/21 09:57> Hospital Course Hospital Course: The patient did admit to regular alcohol use. It was suspected that the alcoholic liver disease accounted for his elevated LFTs, although they were somewhat higher than what is typically seen with alcoholic cirrhosis. A GGT and hepatitis profile were ordered and a liver ultrasound was scheduled. The patient's echo was repeated post cath. It showed an EF of 30% with grade 1 diastolic dysfunction. The patient's liver ultrasound showed fatty liver and some sludge in the gallbladder. Cardiology wanted the patient kept for 48 hours for monitoring. They felt he was a candidate for a LifeVest due to his severe left ventricular dysfunction. The patient did feel better after his cath, although he continued with some mild chest pain off and on. He was sleeping well. Cardiology felt he could be discharged when his LifeVest was approved. He had also been approved for Medicaid so he could afford his medications. The patient did not have the LifeVes
[2021-12-23 10:23] VITALS: PULSE 70
[2021-12-23 12:00] VITALS: BP 131/73; PULSE 110; RESP 20; TEMP 36.6; O2SAT 98
== END 2021-12-23 12:23 | disposition home or self-care (01) | DRG 247 ==
PROVIDERS: Internal Medicine; Admitting Provider Family Medicine; Visit Provider Family Medicine
PROC: 027034Z Dilation of Coronary Artery, One Artery with Drug-eluting Intraluminal Device, Percutaneous Approach (ICD-10-PCS; principal; 2021-12-20 03:45)
DX: I21.4 Non-ST elevation (NSTEMI) myocardial infarction (principal); F17.210 Nicotine dependence, cigarettes, uncomplicated; I10 Essential (primary) hypertension; I25.10 Atherosclerotic heart disease of native coronary artery without angina pectoris; I25.82 Chronic total occlusion of coronary artery; K70.30 Alcoholic cirrhosis of liver without ascites
CPT/HCPCS: 36415; 76705; 80053; 80061; 80074; 82550; 82553; 82977; 84484; 85007; 85025; 85347; 85730; 92943; 93005; 93306; 93458; 99152; 99153; C1725; C1760; C1769; C1876; C9607; C9803; J1644; Q9967; U0003; U0005

== ENCOUNTER → 2021-12-28 09:50 | Outpatient (CLI) | payer OTHER, SELFPAY ==
[2021-12-28 10:38] LABS: Basophils # 0.1 K/mm3 (0-0.2); Basophils % 0.7 % (0.1-2.0); Eosinophils # 0.4 K/mm3 (0.0-0.4); Eosinophils % 4.7 % (0.1-12.0); Hematocrit 42.3 % (42.0-52.0); Lymphocytes # 2.5 K/mm3 (0.7-4.5); Lymphocytes % 27.2 % (10-50); Mean Corpuscular HGB Conc 33.1 g/dL (31.8-35.4); Mean Corpuscular Volume 96.7 fl (80-94); Mean Platelet Volume 7.9 fl (7.4-10.4); Monocytes # 0.6 K/mm3 (0.1-1.0); Neutrophils # 5.7 K/mm3 (1.8-7.8); Neutrophils % 61.4 % (37.0-80.0); Platelet Count 553 K/mm3 (142-424); Red Blood Count 4.37 M/mm3 (4.60-6.20); Red Cell Distribution Width 14.5 % (11.5-17.5); White Blood Count 9.2 K/mm3 (4.8-10.8)
[2021-12-28 11:31] LABS: Alanine Aminotransferase 27 U/L (12-78); Aspartate Amino Transferase 25 U/L (17-59); Bilirubin,Unconjugated 0.3 mg/dL (0.0-1.1)
[2021-12-28 11:32] LABS: Albumin Level 3.7 g/dl (3.5-5.0); Alkaline Phosphatase 84 U/L (38-126); Bilirubin,Direct 0.3 mg/dl (0.0-0.4); Bilirubin,Indirect 0.2 mg/dL (0.0-0.9); Bilirubin,Total 0.5 mg/dl (0.2-1.3); Cholesterol 216 mg/dl (140-200); HDL Cholesterol 31 mg/dl (40-60); Total Protein,Serum 6.5 g/dl (6.3-8.2); Triglycerides 160 mg/dl (30-150); VLDL Cholesterol 32 mg/dL (0-40)
[2021-12-28 11:43] LABS: Direct LDL Cholesterol 157.89 mg/dL (100-129)
== END ==
PROVIDERS: Visit Provider Nurse Practitioner Family
DX: R06.00 Dyspnea, unspecified (principal); I25.10 Atherosclerotic heart disease of native coronary artery without angina pectoris; I21.4 Non-ST elevation (NSTEMI) myocardial infarction; I50.20 Unspecified systolic (congestive) heart failure; I51.9 Heart disease, unspecified; I11.9 Hypertensive heart disease without heart failure; R79.89 Other specified abnormal findings of blood chemistry; I63.9 Cerebral infarction, unspecified; E11.9 Type 2 diabetes mellitus without complications
CPT/HCPCS: 80061; 80076; 85025

== ENCOUNTER → 2022-03-21 08:16 | Outpatient (CLI) | payer OTHER, SELFPAY ==
--- NOTE | 2022-03-21 08:18 | CA_ITS ---
APPROVED REPORT EXAM: Comprehensive 2D, Doppler, and color-flow Echocardiogram Forms Examiner: RT Gokul(R) Ht: 5 ft 5 in Wt: 207lbs BSA: 2.01 BP: 111/84 mmHg Indications: CAD, smoker, hyperlipidemia, EF 30% 12/2021, currently wearing lifevest. history NSTEMI M-Mode Dimensions RVDd 3.09 cm (0.9-2.6) LA Diam 4.64 cm (1.9-4.0) LVDd 5.14 cm (3.5-5.7) Ao Diam 2.95 cm (2.0-3.7) LVDs 4.34 cm (3.5-5.7) IVSd 0.84 cm (0.6-1.1) PWd 0.60 cm (0.6-1.1) EF (Teich) 32.70% FS 15.60% EDV (Teich) 126.10 mL ESV (Teich) 84.90 mL Conclusion 1. Limited echocardiogram was performed to evaluate left ventricular systolic function. 2. Estimated ejection fraction 30%, left ventricle appears to be globally hypokinetic. 3. Small pericardial effusion noted. Electronically signed by : Ji Hoffman MD 03/21/2022 21:00:42
== END ==
PROVIDERS: Visit Provider Nurse Practitioner Family
DX: I50.22 Chronic systolic (congestive) heart failure (principal); I25.5 Ischemic cardiomyopathy
CPT/HCPCS: 93308

== ENCOUNTER 2022-04-09 07:38 | Day surgery (SDC) | payer OTHER, SELFPAY ==
[2022-04-09] VITALS (11 sets, daily range): BP systolic 119–156; BP diastolic 79–107; PULSE 71–97; RESP 18–20; TEMP 36.8; O2SAT 93–96; BMI 37.4
--- NOTE | 2022-04-09 | IR_ITS ---
APPROVED REPORT Patient Location: Outpatient [place] Type Screw Machine Operator: CHANDNI Davis RT (R) PROCEDURES 1. Pocket formation for AICD. 2. Placement of atrial sensing and pacing coil into the right atrial appendage. 3. Placement of a ventricular sensing, pacing and shocking coil in the right ventricular apex. 4. Permanent AICD placement. INDICATION Systolic Congestive Heart Failure, ejection < 35%, [place] Heart Assoication Class 3 Congestive Heart Failure Informed consent was obtained prior to the procedure. COMPLICATIONS None Estimated Blood Loss: Less than 10 mls TECHNIQUE 1% Lidocaine with epinephrine used to anesthetized the left anterior aspect of the chest. Scalpel was used to make the initial cutaneous incision while electrocautery was used to dissect down tinto the fascia. The fascia was lifted off the pectoralis muscle and digitally manipulated creating a pocket for the defibrillator. The patient was then placed in Trendelenburg position and the subclavian vein was accessed 2 times via the Selinger technique. A 8 [place] sheath was placed under fluoroscopic guidance into the subclavian vein. The dilator was removed from the sheath. Using fluoroscopic guidance, the ventricular lead was placed into the right ventricular apex, screwed and secured into place. Electronic interrogation proved acceptable thresholds and voltage within the lead. Using 3-0 silk, the ventricular lead was then secured into place and sheath peeled away. A 6 [place] fresh sheath and dilator was placed over the existing wire. Using fluoroscopic guidance, the atrial lead was then placed into the right atrial appendage and screwed and secured in place. Electrical interrogation demonstrated acceptable thresholds and voltage number. The atrial lead was then secured into place using 3-0 silk and sheath peeled away. 1 gram of Ancef was used to flush the pocket. All 3 leads were connected to generator and tested via computer. The defibrillator then secured to the fascia. Monocryl was used to close the subcutaneous layers while brittany were used to close the cutaneous layer. A pressure dressing was placed and the patient was transferred to the postop holding area in stable condition for postoperative care. INTERROGATION Generator Model number: YO MEJIA DR, D233 Generator Serial number: [id number] Atrial lead model number: INGEVITY+ 52CM, 7841 Atrial lead serial number: [id number] P-wave: 5.0mV Impedence: 456 ohms Threshold: 1.2V@0.4ms Current: 2.7mA Right Ventricular lead model number: [id number]+ 59CM, 0675 Right Ventricular lead serial number: [id number] R-wave: 18.0mV Impedence: 586 ohms Threshold: 0.4V@0.4ms Shock Imp.: 42 ohms Current: 0.7mA Pacing Parameters: Mode: DDD Base/Max Track:60 ppm / 130 ppm ICD Therapy parameters: VF: 210 bpm 2.5 sec., Quick Convert, 41Jx8 VT: 180 bpm 5.0 sec., ATP, 41Jx6 No diaphragmatic stimulation at 10 volts. IMPRESSION 1. Successful pocket formation for AICD. 2. Successful placement of atrial sensing and pacing coil into the right atrial appendage. 3. Successful placement of a ventricular sensing, pacing and shocking coil in the right ventricular apex. 4. Successful permanent AICD placement. PLAN 1. follow up office visit, post op wound care. Electronically signed by : Patrick Petit MD 04/09/2022 13:22:06
--- NOTE | 2022-04-09 07:39 | XR_ITS ---
FINAL REPORT CLINICAL HISTORY: POST PACEMAKER/AICD PLACEMENT EVAL FOR PNEUMO FINDINGS: A portable view of the chest is obtained. There is a left ICD. The heart is enlarged. There are low lung volumes. There are bibasilar opacities likely representing atelectasis. There are small pleural effusions. There is no pneumothorax. IMPRESSION: Left ICD without pneumothorax. Bibasilar opacities likely representing atelectasis. Reviewed, Interpreted and Dictated by Hailee Chaney MD Transcribed by Lopez Amaral Authenticated by Hailee Chaney MD on 04/09/2022 02:23:10 PM [facility]
[2022-04-09 07:54] LABS: Coronavirus 19, PCR Not Detected (NotDetected); Influenza A, PCR Not Detected (NotDetected); Influenza B, PCR Not Detected (NotDetected)
[2022-04-09 08:05] LABS: Basophils # 0.2 K/mm3 (0-0.2); Basophils % 2.3 % (0.1-2.0); Eosinophils # 0.6 K/mm3 (0.0-0.4); Eosinophils % 7.7 % (0.1-12.0); Hematocrit 45.9 % (42.0-52.0); Hemoglobin 15.4 g/dL (14.1-18.0); Lymphocytes # 2.9 K/mm3 (0.7-4.5); Lymphocytes % 36.1 % (10-50); Mean Corpuscular HGB Conc 33.6 g/dL (31.8-35.4); Mean Corpuscular Hemoglobin 31.7 pg (27.0-31.2); Mean Corpuscular Volume 94.4 fl (80-94); Mean Platelet Volume 8.1 fl (7.4-10.4); Monocytes # 0.4 K/mm3 (0.1-1.0); Monocytes % 4.8 % (1.7-9.3); Neutrophils # 3.9 K/mm3 (1.8-7.8); Neutrophils % 49.1 % (37.0-80.0); Platelet Count 270 K/mm3 (142-424); Red Blood Count 4.86 M/mm3 (4.60-6.20); Red Cell Distribution Width 14.3 % (11.5-17.5); White Blood Count 7.9 K/mm3 (4.8-10.8)
[2022-04-09 08:13] LABS: Anion Gap 8.7 mEq/L (5-15); Blood Urea Nitrogen 17 mg/dl (9-20); Calcium 9.1 mg/dl (8.4-10.2); Carbon Dioxide 28 mmol/L (22.0-30.0); Chloride 105 mmol/L (98-107); Creatinine Clearance Estimated 140 mL/min (50-200); Estimated Glomerular Filt Rate 88 ml/min (>60); GFR (African American) 106 ML/MIN (>60); Glucose 150 mg/dl (74-100); Potassium 4.7 mmoL/L (3.5-5.1); Sodium 137 mmol/L (136-145)
== END 2022-04-09 14:46 | disposition home or self-care (01) ==
LOC: CATHLAB 07:39
PROVIDERS: PCP Internal Medicine; Visit Provider Internal Medicine
PROC: 0JH608Z Insertion of Defibrillator Generator into Chest Subcutaneous Tissue and Fascia, Open Approach (ICD-10-PCS; CPT 33249; principal; 2022-04-09 10:00)
DX: I25.5 Ischemic cardiomyopathy (principal); I50.22 Chronic systolic (congestive) heart failure; Z79.899 Other long term (current) drug therapy; I11.0 Hypertensive heart disease with heart failure; I25.2 Old myocardial infarction
CPT/HCPCS: 33249; 36415; 71045; 80048; 85025; C1721; C1895; C1898; C9803; U0003; U0005

== ENCOUNTER → 2022-04-27 08:55 | Outpatient (CLI) | payer OTHER, SELFPAY ==
--- NOTE | 2022-04-27 08:59 | US_ITS ---
FINAL REPORT CLINICAL HISTORY: CLAUDICATION BLE,REST PAIN BLE,HX SMOKING,HTN FINDINGS: BILATERAL ANKLE BRACHIAL INDICES Pressure indices are as follows are: RIGHT LOWER EXTREMITY Ankle brachial pressure index: 1.35 Toe brachial pressure index: 0.88 COMMENTS: Normal LEFT LOWER EXTREMITY Ankle brachial pressure index: 1.33 Toe brachial pressure index: 0.95 COMMENTS: Normal IMPRESSION: No evidence of significant obstructive peripheral vascular disease of the lower extremities. Reviewed, Interpreted and Dictated by Edgar Jeter III, MD Transcribed by Ara Parson Authenticated and [facility]
== END ==
PROVIDERS: PCP Internal Medicine; Visit Provider Nurse Practitioner Family
DX: R06.00 Dyspnea, unspecified (principal); I70.213 Atherosclerosis of native arteries of extremities with intermittent claudication, bilateral legs; I25.10 Atherosclerotic heart disease of native coronary artery without angina pectoris; I25.5 Ischemic cardiomyopathy; I11.0 Hypertensive heart disease with heart failure; I50.22 Chronic systolic (congestive) heart failure; E78.2 Mixed hyperlipidemia; Z95.810 Presence of automatic (implantable) cardiac defibrillator
CPT/HCPCS: 93923

== ENCOUNTER 2023-12-19 07:58 | Outpatient (CLI) | payer OTHER, SELFPAY ==
--- NOTE | 2023-12-19 07:59 | NM_ITS ---
APPROVED REPORT Exam: Nuclear Stress Test Indication: chest pain Patient Location: Outpatient Stress Tech: Shanna Vargas [place] Tech:CHANDNI Marmolejo RT(R)(N) Ht: 5 ft 5 in Wt: 170 lbs HR: 78 bpm BP: 120/83 mmHg BSA: 1.85 m2 Rhythm: NSR TID: 1.11 BMI: 28.2 History: chest pain Procedure: Patient received 0.4 mg of intravenous Lexiscan, resting heart rate 78 bpm, resting blood pressure 120/83 mmHg, with Lexiscan maximum heart rate achieved was 100 bpm which is 85 % of the maximum predicted heart rate and blood pressure was 120/83 mmHg. With Lexiscan, patient denied any complaint of chest pain. The pt was not able to lay on his belly for prone images. Cardiac Stress and Resting SPECT Images: Cardiac Stress and Resting SPECT images were obtained using technetium 99m Myoview 32.8 mCi stress and 10.37 mCi at rest. The patient could not lie on his abdomen. Therefore, prone stress imaging could not be performed. This may affect the diagnostic interpretation of the study findings. Resting and stress imaging in supine positions demonstrate a large sized, severe, fixed perfusion defect in the inferior, ateral, anterolateral and inferolateral LV barney. Gated imaging demonstrates moderate reduction in global LV systolic function. There is akinesis of the inferior LV wall, as well as the lateral LV wall. LVEF is calculated at 35%. Conclusion: Large sized, severe, fixed perfusion defect in the inferior, ateral, anterolateral and inferolateral LV barney. No evidence of reversible ischemia. Gated imaging demonstrates moderate reduction in global LV systolic function. There is akinesis of the inferior LV wall, as well as the lateral LV wall. LVEF is calculated at 35%. Electronically signed by : Elaine Boles MD 12/25/2023 13:04:32
--- NOTE | 2023-12-19 09:23 | CA_ITS ---
APPROVED REPORT EXAM: Comprehensive 2D, Doppler, and color-flow Echocardiogram Radiology Therapist: Razia Bernard, RCS, RVS Ht: 5 ft 4 in Wt: 217lbs BSA: 2.03 BP: 141/91 mmHg Indications: Dyspnea, CAD, CM ,AICD, Hx-NSTEMI, Ex-smoker,BUBBA, Abn EKG 2D Dimensions IVSd 1.25 cm M: 0.6-1.2 LVEF (Visual) 42.80 % PWd 1.15 cm M: 0.6 - 1.2 LA Volume 61.10 mL LVDd 5.84 cm M: 4.2 - 5.9 LA Volume Index 30.10 mL/m2 (M/F) 16-34 LVDs 4.59 cm M: 2.5 - 4.0 EF AP4 43.60 % Left Atrium 5.05 cm M: 3.0 - 4.0 GL Strain -11.1 % M-Mode Dimensions RVDd 2.89 cm (0.9-2.6) LA Diam 5.36 cm (1.9-4.0) LVDd 5.94 cm (3.5-5.7) LVDs 5.35 cm (3.5-5.7) IVSd 1.24 cm (0.6-1.1) PWd 1.00 cm (0.6-1.1) EF (Teich) 32.20% EPSs 1.86 cm FS 15.60% EDV (Teich) 204.10 mL TAPSE 2.17 (<1.7) ESV (Teich) 138.30 mL LV Diastology E Decel Time 207 (160-240 msec) E/A Ratio 1.53 MED A' 6.90 cm/s LAT A' 7.60 cm/s Aortic Valve QUINCY Index 1.17 cm2/m2 AoV Peak Alphonse. 121.0 (50-130 cm/s) AO Peak GR. 5.80 mmHg AO Mean GR. 2.90 (<5 mmHg) AO VTI 21.1 (18-25 cm) QUINCY (VTI) 2.47 (2.5-4.5 cm2) Mitral Valve MV A Velocity 50.0 (40-130 cm/s) E/A Ratio 1.53 Tricuspid Valve TR P. Velocity 141.00 cm/s RAP Estimate 10.00 mmHg RVSP 18.00 mmHg Left Ventricle The left ventricle is normal size. Left ventricular systolic function is mild to moderately decreased. There is increased LV wall thickness. There is mild to moderate global hypokinesis present. The septum is asynchronous. Grade 1 diastolic dysfunction is present. LVEF is 40%. Right Ventricle The right ventricle is normal size. The right ventricular systolic function is normal. There is a device lead in the right ventricle. Atria Left atrium is mildly dilated. Right atrium is mildly dilated. There is no Doppler evidence of interatrial shunt. Aortic Valve The aortic valve is mildly thickened. There is no aortic valvular stenosis. Trace aortic regurgitation. Mitral Valve The mitral valve leaflets are mildly thickened. No evidence of mitral valve stenosis. Mild mitral regurgitation. Tricuspid Valve The tricuspid valve leaflets are thin and pliable. Trace tricuspid regurgitation. RVSP is normal. Pulmonic Valve The pulmonary valve is normal in structure. Trace pulmonic regurgitation. Great Vessels The aortic root is normal in size. The ascending aorta is normal in size. IVC is normal in size and collapses >50% with inspiration. Pericardium There is no pericardial effusion. Conclusion Mild to moderate reduction in LV systolic function (LVEF 40%). Asynchronous septum. Mild biatrial dilation. Mild MR. Electronically signed by : Elaine Boles MD 12/22/2023 19:31:58
--- NOTE | 2023-12-19 09:24 | CA_ITS ---
APPROVED REPORT Exam: Pharmacologic Technologist: Shanna Gilbert, Ht: 5 ft 6 in Wt: 217 lbs BSA: 2.07 m2 HR: 80 bpm BP: 120/83 mmHg Rhythm: NSR Medical History Medications: Omeprazole,,,,, Aspirin,,,,, Atorvastatin,,,,, Carvedilol,,,,, EnTRESTO,,,,, Stress Test Details Test: LEXISCAN Reason for pharmacologic stress test: physical limitation. HR Resting HR: 78 bpm Max Heart Rate (APMHR): 165 bpm Max HR Achieved: 100 bpm Target HR (85% APMHR): 140 bpm % of APMHR: 61 Recovery HR: 90 bpm BP Resting BP: 120.0/83.0 mmHg Max BP: 120.0/83.0 mmHg Recovery BP: 107.0/73.0 mmHg ECG Resting ECG: NSR, possible old inferior [place], leftward axis Stress ECG: No significant ST changes Arrhythmia: None Clinical Exercise duration: 04:00 min Highest Stage Achieved: Stress ECG Conclusion Symptoms: mild SOA, head & stomach discomfort. No CP. Arrhythmias/Ectopy: None. ST-T Changes: No signficant ST changes. Conclusion: Unremarkable Lexiscan stress. Myoview images reported separately. Test Summary REST 03:17 . . 78 . 120/ 83 . . Stage 1 . . . . . . . Cardiolite injected Stage 1 01:00 . . 91 . . . . Stage 2 01:00 . . 94 . 118/ 72 . . Stage 3 01:00 . . 90 . 119/ 74 . . Stage 4 01:00 . . 91 . 100/ 73 . Stop exercise at 04:00 RECOVERY 01:00 . . 90 . 114/ 75 . . RECOVERY 02:00 . . 89 . 116/ 76 . . RECOVERY 03:00 . . 88 . 107/ 73 . . RECOVERY 03:16 . . 90 . 107/ 73 . . Electronically signed by : Elaine Boles MD 12/25/2023 13:02:38
[2023-12-19] MEDS: SODIUM CHLORIDE 0.9% 10ML SYR (RAD ONLY) 10 ML IV ×2 (09:32)
[2023-12-19] MEDS: ISOTOPE MYOVIEW (PER STUDY) 1 DOSE IV (09:32)
[2023-12-19] MEDS: REGADENOSON 0.4MG/5ML SYRINGE 0.400000000000000022 MG IV (09:32)
== END 2023-12-19 23:59 ==
LOC: RAD 07:59
PROVIDERS: PCP Internal Medicine; Visit Provider Nurse Practitioner Family
DX: R06.09 Other forms of dyspnea (principal); R94.31 Abnormal electrocardiogram [ECG] [EKG]; R42 Dizziness and giddiness; I25.10 Atherosclerotic heart disease of native coronary artery without angina pectoris; I25.5 Ischemic cardiomyopathy; I50.20 Unspecified systolic (congestive) heart failure; E78.5 Hyperlipidemia, unspecified; Z95.810 Presence of automatic (implantable) cardiac defibrillator
CPT/HCPCS: 78452; 93017; 93018; 93306; A9502; J2785

== ENCOUNTER 2024-01-23 14:55 | Outpatient (CLI) | payer OTHER, SELFPAY ==
[2024-01-23 15:39] LABS: Basophils # 0.1 K/mm3 (0-0.2); Basophils % 0.6 % (0.1-2.0); Eosinophils # 0.3 K/mm3 (0.0-0.4); Eosinophils % 2.6 % (0.1-12.0); Hemoglobin 15.8 g/dL (14.1-18.0); Lymphocytes # 3.2 K/mm3 (0.7-4.5); Lymphocytes % 29.6 % (10-50); Mean Corpuscular HGB Conc 33.6 g/dL (31.8-35.4); Mean Corpuscular Hemoglobin 32.3 pg (27.0-31.2); Mean Corpuscular Volume 96.1 fl (80-94); Mean Platelet Volume 8.3 fl (7.4-10.4); Monocytes # 0.6 K/mm3 (0.1-1.0); Neutrophils # 6.8 K/mm3 (1.8-7.8); Neutrophils % 62.1 % (37.0-80.0); Platelet Count 253 K/mm3 (142-424); Red Blood Count 4.89 M/mm3 (4.60-6.20); Red Cell Distribution Width 13.6 % (11.5-17.5); White Blood Count 10.9 K/mm3 (4.8-10.8)
[2024-01-23 16:06] LABS: Alanine Aminotransferase 35 U/L (12-78); Albumin Level 4.2 g/dl (3.5-5.0); Alkaline Phosphatase 193 U/L (38-126); Anion Gap 11.7 mEq/L (5-15); Aspartate Amino Transferase 25 U/L (17-59); Bilirubin,Direct 0.1 mg/dl (0.0-0.4); Bilirubin,Indirect 0.5 mg/dL (0.0-0.9); Bilirubin,Total 0.6 mg/dl (0.2-1.3); Bilirubin,Unconjugated 0.5 mg/dL (0.0-1.1); Blood Urea Nitrogen 16 mg/dl (9-20); Calcium 9.4 mg/dl (8.4-10.2); Carbon Dioxide 29 mmol/L (22.0-30.0); Chloride 102 mmol/L (98-107); Chol/HDL Ratio 4.9 (1-3.5); Cholesterol 181 mg/dl (140-200); Estimated Glomerular Filt Rate 100 ml/min (>60); GFR (African American) 121 ML/MIN (>60); Glucose 293 mg/dl (74-100); HDL Cholesterol 37 mg/dl (40-60); Potassium 4.7 mmoL/L (3.5-5.1); Sodium 138 mmol/L (136-145); Total Protein,Serum 6.8 g/dl (6.3-8.2); Triglycerides 143 mg/dl (30-150); VLDL Cholesterol 29 mg/dL (0-40)
[2024-01-23 16:16] LABS: Direct LDL Cholesterol 104.77 mg/dL (100-129)
[2024-01-23 16:23] LABS: Free T4 (Free Thyroxine) 1.01 ng/dl (0.78-2.19)
[2024-01-23 16:36] LABS: Thyroid Stimulating Hormone 1.62 uIU/mL (0.465-4.68)
== END 2024-01-23 23:59 ==
LOC: LAB 14:59
PROVIDERS: Visit Provider Physician Assistant
DX: R06.00 Dyspnea, unspecified (principal); R42 Dizziness and giddiness; I20.89 Other forms of angina pectoris; R93.1 Abnormal findings on diagnostic imaging of heart and coronary circulation; R94.31 Abnormal electrocardiogram [ECG] [EKG]; I25.5 Ischemic cardiomyopathy; I50.22 Chronic systolic (congestive) heart failure; I73.9 Peripheral vascular disease, unspecified; E78.2 Mixed hyperlipidemia; Z95.810 Presence of automatic (implantable) cardiac defibrillator
CPT/HCPCS: 36415; 80048; 80061; 80076; 84439; 84443; 85025